=== PATIENT | male | born 1945 | race Caucasian/White ===

== ENCOUNTER 2017-01-06 10:09 | Emergency (ER) | payer MEDICARE, OTHER ==
[~2017-01-06] VITALS: Ht 177.8 cm; Wt 68.2 kg
[2017-01-06 10:15] VITALS: BP 133/75; PULSE 70; RESP 12; O2SAT 98
--- NOTE | 2017-01-06 10:27 | ED.REPORT ---
HPI-Trauma Minor / Fall Date of Service Jan 06, 2017 ED Provider: Dr. Butler Pt is a 71 year old male presenting to the ED complaining of right rib pain onset after slipping in the shower just prior to arrival. He denies hitting his head, SOB, or any other injuries or symptoms at this time. He denies being on blood thinners. Nursing Notes Stated Complaint: FELL IN TUB, RIB PAIN Chief Complaint: Multiple Trauma/Fall Nursing Notes Reviewed: Yes Allergies: Coded Allergies: No Known Allergies (Unverified , 01/06/17) Scheduled PRN Hydrocodone-Acetaminophen 5-325 mg (Hydrocodone-Acetaminophen 5-325 mg) 1 Each Tablet 1 TABLET PO QID PRN PRN For Pain General Time Seen by MD: 10:26 Chief Complaint Fall Hx Obtained From: Patient Arrived By: Walk-in Onset Occurred: Just prior to arrival Symptom Duration: Since onset Caused by: Slipped Location: Abdomen Quality: Painful Severity: Current: Moderate Severity: Maximum: Severe Recent Healthcare: No recent doctor visit, No recent hospitalization Similar Sx Previous: No Past Medical History Past Medical History denies Past Surgical History denies Smoking History Unknown if Ever Smoker Ambulatory Status Independent Review of Systems Constitutional: Denies: Weakness - generalized Respiratory: Denies: Shortness of breath, Wheezing Neurologic: Denies: Headache Complete sys rev & neg: except as marked. GI: Reports: Abdominal pain (Right rib pain), Denies: Vomiting Physical Exam Initial Vital Signs Vital Signs (First) Date Time Temp Pulse Resp B/P Pulse Ox O2 Delivery O2 Flow Rate FiO2 01/06/17 10:15 36.5 70 12 133/75 98 Room Air Initial VS: Reviewed Head / Eyes: Atraumatic, Normocephalic, PERRL ENT: Mucous membranes moist, Conjunctiva normal, No scleral icterus Extremities: Vascular intact, Neuro intact, No swelling, No tenderness Skin: Warm, Dry, No cyanosis Neurologic: Alert, Oriented, Nonfocal Psychiatric: Mood/affect normal, Behavior normal, Normal thought content General/Constitutional: Awake, Alert, No acute distress, Well appearing Respiratory / Chest: Breath sounds NL, Breath sounds = bilat, No respiratory distress, No rales, No rhonchi, No wheezing, No chest wall deformity, No crepitus Pain with compression of ribcage Cardiovascular: Heart rate NL, Regular rhythm, Heart sounds NL, Cap refill not delayed, Peripheral circulation NL Abdomen: Soft Right sided lateral mid ribcage tenderness Interpretation & Diagnostics X-Ray Interpretation Xray Interpretation: XRAY RIGHT RIBS: IMPRESSION: No right-sided trauma found. Dictated by: Cas Hernandez M.D. on 01/06/2017 at 11:12 Interpretation / Wet Read by: Interpret - Radiologist Re-Eval/Medical Decision Med Decision/Clinical Course Focal rib contusion without abdominal pain, vitals are stable. X-ray unremarkable, pain seems well controlled. Patient will be discharged with strict return and follow-up precautions. Re-Evaluation/Progress #1: Time of Eval: 10:51 Patient Status: Condition improved Re-Evaluation/Progress Note: Discussed PMHX and performed physical exam. Re-Evaluation/Progress #2: Time of Eval: 11:42 Patient Status: Condition improved Re-Evaluation/Progress Note: Discussed plan for discharge. Pt understands and agrees with plan. Counseled Regarding: Diagnosis, Lab results, Need for follow-up, When/why to return to ED Discharge & Departure Impression: Primary Impression: Rib contusion Encounter type: initial encounter Laterality: right Qualified Code: S20.211A - Contusion of right front wall of thorax, initial encounter Disposition: Home Discharge Condition All VS Reviewed: Yes Condition: Improved Additional Instructions: No obvious fracture to ribs is identified however this can often be missed on plain x-ray. Use Vicodin as needed for pain. Follow-up with your regular doctor. Return to the ER if you develop severe chest pain, trouble breathing, or any other concerns. Referrals: [facility] Attestation Portions of this note were transcribed by Charla Scott. I, Dr. Butler personally performed the history, physical exam and medical decision-making; I reviewed and confirmed the accuracy of the information in the transcribed note. Signed by: Lillian Osborn, 01/06/2017 at 1201. copies to: [facility] Grzegorz Butler DO Jan 06, 2017 10:27 CHARLA SCOTT Jan 06, 2017 10:52
[2017-01-06 11:02] VITALS: BP 117/63; PULSE 65; RESP 14; O2SAT 99
--- NOTE | 2017-01-06 11:15 | DRSVH ---
PROCEDURE: X-RAY RIGHT RIBS, TWO VIEWS ([id number]) INDICATIONS: fall , trauma TECHNIQUE: 2 views of the right ribs were acquired. COMPARISON: None. FINDINGS: Surgical changes and devices: None. Bones and chest wall: No fractures or dislocations. No suspicious bony lesions. Overlying soft tis sues appear unremarkable. Lungs and pleura: The visualized lung appears clear. No pleural effusions or pneumothorax are visib le. IMPRESSION: No right-sided trauma found. Dictated by: Cas Hernandez M.D. on 01/06/2017 at 11:12 Approved by: Cas Hernandez M.D. on 01/06/2017 at 11:13
[2017-01-06] MEDS ORDERED: HYDR-4003 PO (11:51)
[2017-01-06 12:11] VITALS: BP 115/71; PULSE 63; RESP 16; O2SAT 99
== END 2017-01-06 12:12 | disposition home or self-care (01) ==
LOC: SED 10:09
DX: S20.211A Contusion of right front wall of thorax, initial encounter (principal); W18.2XXA Fall in (into) shower or empty bathtub, initial encounter; Y93.9 Activity, unspecified; Y92.9 Unspecified place or not applicable; Y99.8 Other external cause status

== ENCOUNTER 2017-01-11 20:54 | Emergency (ER) | payer MEDICARE, OTHER ==
[~2017-01-11] VITALS: Ht 180.3 cm; Wt 70.5 kg
[~2017-01-11 20:54] MED LIST: HYDR-4003 PO
[2017-01-11 20:57] VITALS: BP 119/74; PULSE 79; RESP 15; O2SAT 99
--- NOTE | 2017-01-11 22:56 | ED.REPORT ---
HPI-General Illness Date of Service Jan 11, 2017 ED Provider: Yanick Rodriguez MD Patient is a 71 year old male who presents to the ED complaining of increasing pain s/p injurying his rib 5 days ago and running out of pain medication 3 days ago. He was evaluated in this department s/p the original injury and prescribed 10 tablets of hydrocodone (5-325). He also has a laceration over his R 3rd knuckle and does not recall a mechanism of injury. He denies hemoptysis, SOB, or any other symptoms. He has been taking Aspirin and Ibuprofen for his pain since he ran out of narcotics. Nursing Notes Stated Complaint: CRACKED RIB Chief Complaint: General Complaint Nursing Notes Reviewed: Yes Allergies: Coded Allergies: No Known Allergies (Unverified , 01/06/17) Scheduled PRN Hydrocodone-Acetaminophen 5-325 mg (Hydrocodone-Acetaminophen 5-325 mg) 1 Each Tablet 1 TABLET PO QID PRN PRN For Pain General Time Seen by MD: 22:29 Chief Complaint Other (Rib pain ) Hx Obtained From: Patient Arrived By: Wheelchair Sudden in Onset?: Yes Onset Occurred: 3 days ago Symptom Duration: Since onset Relieved by: Prescription meds Recent Healthcare: Recent doctor visit Similar Sx Previous: Yes Past Medical History Past Medical History denies Past Surgical History denies Smoking History Unknown if Ever Smoker Social History Alcohol Use: Denies alcohol use Drug Use: Denies drug use Other Social History: From out of town, Homeless Ambulatory Status Independent Review of Systems +R sided rib pain, Laceration R 3rd knuckle Full Review of Systems Respiratory: Denies: Shortness of breath GI: Denies: Hematochezia Complete sys rev & neg: except as marked. Physical Exam Vital Signs Vital Signs Date Time Temp Pulse Resp B/P Pulse Ox O2 Delivery O2 Flow Rate FiO2 01/11/17 23:50 36.6 82 16 121/76 97 Room Air 01/11/17 20:57 36.5 79 15 119/74 99 Room Air Initial VS: Reviewed, Vital signs normal Head / Eyes: Atraumatic, Normocephalic Neck: Full range of motion Cardiovascular: Intact distal pulses Abdomen / GI: Soft, Non-tender Skin: Warm, Dry Neurologic: Alert, Oriented, Nonfocal General/Constitutional: Awake, Alert, No acute distress, Well developed Respiratory / Chest: Breath sounds NL, Breath sounds = bilat, No respiratory distress R ribs tender to palpation Psychiatric: Not suicidal, Not homicidal Re-Eval/Medical Decision Med Decision/Clinical Course 71-year-old male who injured his ribs a few days ago. He used 10 Vicodin and now has recurrent pain. He seems quite uncomfortable. He has no significant risk factors for medication overuse or addiction. He was given an additional 10 Vicodin and instructed to follow up with his primary if he has persistent pain. We discussed the risks of opiate pain medications, especially with continuing ongoing use. Time of Eval: 23:01 Re-Evaluation/Progress Note: Discussed plan for discharge. Patient understands and agrees with plan. All questions addressed at this time. Counseled Regarding: Diagnosis, Need for follow-up, When/why to return to ED Discharge & Departure Primary Impression: Rib contusion Encounter type: subsequent encounter Laterality: right Qualified Code: S20.211D - Contusion of right front wall of thorax, subsequent encounter Disposition: Home Discharge Condition All VS Reviewed: Yes Condition: Stable Additional Instructions: You came to the ED to be seen for your rib injury. As discussed on January 06, you probably have a rib fracture. You have no sign of lung injury or infection. This will continue to hurt for 4-6 weeks, but should slowly improve. Take your prescription as prescribed. When that is finished, use Tylenol or ibuprofen for pain. If you stay in the area, call the [facility] to schedule a follow-up appointment in 2 weeks. Return to the ED if you experience difficulty breathing, productive cough, fever , chills, bleeding, frequent falls, or weakness. Referrals: [facility] (PCP) Scribe Attestation Portions of this note were transcribed by Jose Arriaga. I, Dr. Rodriguez personally performed the history, physical exam and medical decision-making; I reviewed and confirmed the accuracy of the information in the transcribed note. Signed by: Jose Arriaga 01/11/2017, 2344 Yanick Rodriguez MD Jan 11, 2017 22:56 JOSE ARRIAGA Jan 11, 2017 23:03
[2017-01-11] MEDS ORDERED: _HYDROcodone/APAP 5-325 mg Tablet PO PRN (23:05)
[2017-01-11 23:50] VITALS: BP 121/76; PULSE 82; RESP 16; O2SAT 97
== END 2017-01-11 23:51 | disposition home or self-care (01) ==
LOC: SED 20:54
DX: S20.211D Contusion of right front wall of thorax, subsequent encounter (principal)

== ENCOUNTER 2017-02-11 22:57 | Emergency (ER) | payer MEDICARE, OTHER ==
[~2017-02-11] VITALS: Ht 177.8 cm; Wt 68.2 kg
[2017-02-11 23:13] VITALS: BP 127/75; PULSE 73; RESP 18; O2SAT 97
--- NOTE | 2017-02-12 00:30 | ED.REPORT ---
HPI-Extremity Problem Lower Date of Service Feb 12, 2017 ED Provider: Dr. Jean The pt is a 71 y/o male with no pertinent hx who presents to the ED complaining of right knee pain after he fell on the sidewalk and landed on his knee just prior to arrival. Associated sx include right knee abrasion. He denies difficulty walking. There are no other complaints at this time. Nursing Notes Stated Complaint: FELL, INJURED LEFT KNEE Chief Complaint: Extremity Trauma Nursing Notes Reviewed: Yes Allergies: Coded Allergies: No Known Allergies (Unverified , 01/06/17) Scheduled PRN Hydrocodone-Acetaminophen 5-325 mg (Hydrocodone-Acetaminophen 5-325 mg) 1 Each Tablet 1 TABLET PO QID PRN PRN For Pain Ibuprofen (Ibuprofen) 400 Mg Tablet 400 MG PO QID PRN PRN For Pain General Time Seen by MD: 00:30 Chief Complaint Knee injury right Hx Obtained From: Patient Arrived By: Walk-in Onset Occurred: Just prior to arrival Symptom Duration: Since onset Caused by: Fall on ground Location: : Knee right Quality: Painful Severity: Current: Mild Severity: Maximum: Mild Recent Healthcare: No recent doctor visit Similar Sx Previous: No Past Medical History Past Medical History denies Past Surgical History denies Smoking History Unknown if Ever Smoker Social History Alcohol Use: Denies alcohol use Drug Use: Denies drug use Other Social History: From out of town, Homeless Ambulatory Status Independent Review of Systems Reports: abrasion on the right knee Denies: difficulty walking Musculoskeletal: Reports: Joint pain (right knee) Complete sys rev & neg: except as marked. Physical Exam Initial Vital Signs Vital Signs (First) Date Time Temp Pulse Resp B/P Pulse Ox O2 Delivery O2 Flow Rate FiO2 02/11/17 23:13 36.4 73 18 127/75 97 Room Air Initial VS: Reviewed Head / Eyes: Atraumatic, Normocephalic Neck: Supple, Non-tender, Full range of motion Respiratory: No respiratory distress Cardiovascular: Intact distal pulses Abdomen / GI: Soft, Non-tender Upper Extremities: Vascular intact, Neuro intact, No swelling, No tenderness Skin: Warm, Dry, No cyanosis Neurologic: Alert, Oriented, Nonfocal Lower Extremity / Pelvis / MS: Full range of motion, No swelling, No deformity , Neurologic intact, Vascular intact Small abrasion on the right knee Ankle / Foot: Atraumatic, Full range of motion, No swelling, No erythema, Non- tender, No deformity, Neurologic intact, Vascular intact General/Constitutional: Awake, Alert, No acute distress, Cooperative Interpretation & Diagnostics X-Ray Interpretation Xray Interpretation: No fracture. X-Ray Ordered: Knee right Interpretation / Wet Read by: Wet read ED physician Re-Eval/Medical Decision Med Decision/Clinical Course 71-year-old man presents with an abrasion on his knee and some pain in his knee And a benign exam and negative x-ray. Bacitracin dressing ice bag and ibuprofen as needed. Follow up with PCP. Re-Evaluation/Progress : Time of Eval: 00:31 Re-Evaluation/Progress Note: Rechecked pt. Discussed imaging results, diagnosis and plan to discharge. Pt understands and agrees with the plan. F/U instruction and RTER warning given. All questions addressed. Counseled Regarding: Diagnosis, Need for follow-up, When/why to return to ED Discharge & Departure Impression: Primary Impression: Right knee injury Encounter type: initial encounter Qualified Code: S89.91XA - Unspecified injury of right lower leg, initial encounter Additional Impression: Abrasion Disposition: Home Discharge Condition All VS Reviewed: Yes Condition: Stable Patient Instructions: Contusions in Adults (ED), Abrasion (ED) Additional Instructions: Bacitracin dressing to abrasions three times daily. Apply ice to the knee for the first twenty-four hours intermittently to reduce swelling. Follow-up with your doctor in the office. Return if any immediate issues. Referrals: [facility] Scribe Attestation Portions of this note were transcribed by Gallo Hernández. I,, personally performed the history, physical exam and medical decision-making;I reviewed and confirmed the accuracy of the information in the transcribed note. Signed by Lillian Iqbal. 02/12/17 Chandler Jean MD Feb 12, 2017 00:30 Gallo Hernández Feb 12, 2017 00:32
[2017-02-12] MEDS ORDERED: IBUP400T22 PO (00:34)
[2017-02-12] MEDS ORDERED: Bacitracin Ointment Packet TOPICAL ONE (00:35)
[2017-02-12 00:47] VITALS: BP 110/74; PULSE 69; O2SAT 97
--- NOTE | 2017-02-12 10:48 | DRSVH ---
PROCEDURE: X-RAY LEFT KNEE, THREE VIEWS ([id number]) INDICATIONS: pain TECHNIQUE: 3 views of the knee were acquired. COMPARISON: None. FINDINGS: Bones: No fractures or dislocations. No suspicious bony lesions. Soft tissues: No joint effusion. No suspicious soft tissue calcifications. IMPRESSION: No fracture seen. If there is continued pain, followup exam or additional imaging such as MRI or CT could be performed for further assessment. Dictated by: Román Stephens [facility] Interpreted: Prince Whitmore MD on 02/12/2017 at 8:58 Approved by: Prince Whitmore M.D. on 02/12/2017 at 10:46
== END 2017-02-12 00:48 | disposition home or self-care (01) ==
LOC: SED 22:57
DX: S80.211A Abrasion, right knee, initial encounter (principal); W18.39XA Other fall on same level, initial encounter; Y93.89 Activity, other specified; Y92.019 Unspecified place in single-family (private) house as the place of occurrence of the external cause; Y99.8 Other external cause status